=== PATIENT | male | born 1950 | race Caucasian/White ===

== ENCOUNTER 2016-11-01 00:06 | Emergency (ER) | payer OTHER ==
[~2016-11-01] VITALS: Ht 182.9 cm; Wt 93.2 kg
[~2016-11-01 00:06] MED LIST: ATRV10T PO; CLOP75TA3 PO; METO-272 PO
[2016-11-01 00:23] VITALS: BP 133/79; PULSE 75; RESP 16; O2SAT 95
[2016-11-01] MEDS ORDERED: 0.9% Sodium Chloride 1,000 ML IV ONE (00:58)
--- NOTE | 2016-11-01 00:58 | ED.REPORT ---
HPI-Abd Pain M 40 and Over Date of Service Nov 01, 2016 ED Provider: Ozzie Reese MD Patient is a 66 year old male with a history of coronary artery disease with prior cardiac stents, hypertension, and BPH who presents to the ED complaining of severe lower abdominal pain that began evening. The patient reports having this pain intermittently for the past 6 months, sometimes associated with chills. His pain is resolved on arrival to the ED. He reports having loose light stools, ashraf in color, but denies having actual diarrhea. He states that these episodes are frequent, often small and accompanied by increased urgency. He denies hematochezia, a history of Crohn's Disease, or inflammatory bowel disease. Patient has previously had an appendectomy but denies other abdominal surgeries. He reports increased pain in prostate when passing stool or urine, but denies having dysuria. Patient has a strong family history of prostate cancer so he find this concerning. He reports associated nausea but vomiting. Patient denies fever. Patient has previously been seen by his PCP for his abdominal complaints but he denies formal diagnosis. His symptoms are believed to possibly be IBS. He has not been see by GI. Nursing Notes Stated Complaint: IBS LIKE PAINS Chief Complaint: Male Abdominal Pain Nursing Notes Reviewed: Yes Allergies: Coded Allergies: Penicillins (Verified Allergy, Mild, itchy palms, 12/22/15) Sulfa (Sulfonamide Antibiotics) (Verified Allergy, Mild, itchy palms, ) Scheduled Atorvastatin (Lipitor) 10 Mg Tab 10 MG PO DAILY Clopidogrel Bisulfate (Plavix) 75 Mg Tablet 75 MG PO DAILY Metoprolol Succinate ER (Metoprolol Succinate ER) 50 Mg Tab.er.24h 25 MG PO DAILY Scheduled PRN Dicyclomine (Bentyl) 10 Mg Capsule 10 MG PO QID PRN PRN cramps General Time Seen by MD: 00:58 Chief Complaint Abdominal pain Hx Obtained From: Patient Arrived By: Ambulance Sudden in Onset?: No Onset Occurred: 1 - 4 hours ago Symptom Duration: Since onset Location: : Abdomen lower Quality: Painful Severity: Current: No pain currently Severity: Maximum: Severe Recent Healthcare: No recent hospitalization, Recent doctor visit Similar Sx Previous: Yes Past Medical History Past Medical History coronary artery disease with prior [place] in April 2014 BPH Reports: Hyperlipidemia, Hypertension Past Surgical History cardiac stents 3x April 2014 arthoscopic knee surgery Reports: Appendectomy Family History Prostate Cancer Smoking History Former Smoker Social History Alcohol Use: Denies alcohol use Drug Use: Denies drug use Other Social History: Good social support, , Local resident Ambulatory Status Independent Review of Systems Constitutional: Reports: Chills, Denies: Fever GI: Reports: Abdominal pain, Nausea, Denies: Diarrhea (but reports loose stool), Hematochezia, Vomiting Male: Denies Dysuria Complete sys rev & neg: except as marked. Physical Exam Initial Vital Signs Vital Signs (First) Date Time Temp Pulse Resp B/P Pulse Ox O2 Delivery O2 Flow Rate FiO2 11/01/16 00:23 38.1 75 16 133/79 95 Room Air Initial VS: Reviewed Head / Eyes: Atraumatic, Normocephalic, PERRL ENT: Conjunctiva normal, No scleral icterus Neck: Supple, Full range of motion Extremities: Vascular intact, Neuro intact Skin: Warm, Dry, No cyanosis Neurologic: Alert, Oriented, Nonfocal Psychiatric: Mood/affect normal, Behavior normal, Normal thought content General/Constitutional: Awake, Alert, No acute distress Respiratory / Chest: Breath sounds NL, Breath sounds = bilat, No respiratory distress, No rales, No rhonchi, No wheezing Cardiovascular: Heart rate NL, Regular rhythm, Heart sounds NL, No murmurs Abdomen: Soft, No guarding, No rebound Tenderness/Guarding/Rebound: Positive: Tender suprapubic Back: not examined Interpretation & Diagnostics Lab Results Interpretation Result Diagram: 11/01/16 0130 11/01/16 0130 Test 11/01/16 00:43 11/01/16 01:30 Urine Color Yellow (YELLOW) Urine Appearance Clear (CLEAR,HAZY) Urine pH 6.5 (5.0-8.0) Urine Specific [place] 1.010 (1.003-1.035) Urine Protein Negativemg/dL (NEG,TRACE) Urine Glucose (UA) Negativemg/dL (NEGATIVE) Urine Ketones Negativemg/dL (NEGATIVE) Urine Occult Blood Moderate (NEGATIVE) Urine Nitrite Negative (NEGATIVE) Urine Bilirubin Negative (NEGATIVE) Urine Urobilinogen Normalmg/dL (NORMAL) Urine Leukocyte Esterase Negative (NEGATIVE) Urine RBC 3-10/hpf (0-2) Urine WBC 0-5/hpf (0-5) Urine Epithelial Cells Occasional/hpf (NONE-MOD) Urine Crystals None seen (NONE SEEN) Urine Bacteria None/hpf (NONE-FEW) Urine Hyaline Casts None/lpf (NONE) Urine Granular Casts None seen (NONE SEEN) Urine Waxy Casts None seen (NONE SEEN) Urine Red Blood Cell Casts None seen (NONE SEEN) Urine White Blood Cell Casts None seen (NONE SEEN) Urine Mucus None seen (None Seen) Urine Trichomonas None seen (NONE SEEN) Urine Yeast None (NONE SEEN) Urinalysis Comment None Urine Culture Reflexed Not indicated White Blood Count 14.2th/mm3 (3.8-10.1) Red Blood Count 4.27mil/mm3 (4.40-5.80) Hemoglobin 13.2g/dL (13.8-17.2) Hematocrit 38.9% (41.0-50.0) Mean Corpuscular Volume 91.1fL (81-100) Mean Corpuscular Hemoglobin 30.9pg (27.0-35.0) Mean Corpuscular Hemoglobin Concent 33.9% (32.0-37.0) Red Cell Distribution Width 12.4% (12.3-15.4) Platelet Count 245bil/L (150-400) Neutrophils (%) (Auto) 73.8% (40-74) Lymphocytes (%) (Auto) 14.0% (14-46) Monocytes (%) (Auto) 8.8% (4-12) Eosinophils (%) (Auto) 2.8% (0-5) Basophils (%) (Auto) 0.2% (0-3) Sodium Level 135mEq/L (134-144) Potassium Level 4.1mEq/L (3.5-5.2) Chloride Level 98mEq/L (97-108) Carbon Dioxide Level 23mmol/L (18-29) Blood Urea Nitrogen 12mg/dL (8-27) Creatinine 0.77mg/dL (0.76-1.27) Estimat Glomerular Filtration Rate 107mL/min (>59) Glucose Level 119mg/dL (60-99) Calcium Level 9.0mg/dL (8.5-10.1) Magnesium Level 2.1mg/dL (1.6-2.6) Total Bilirubin 0.5mg/dL (0.0-1.2) Aspartate Amino Transf (AST/SGOT) 21U/L (0-50) Alanine Aminotransferase (ALT/SGPT) 14U/L (0-44) Alkaline Phosphatase 74U/L (25-160) Total Protein 7.1g/dL (6.4-8.4) Albumin 4.2g/dL (3.4-5.0) Lipase 62U/L (13-60) Hold Christiansen Top Tube Received (Received) Re-Eval/Medical Decision Med Decision/Clinical Course Crampy abdominal pain intermittent and pattern consistent with his prior irritable bowel. He resolved at this point without therapy. He has a mild elevation of his white count of 14,000 but no other findings of concern. No indication for CT scanning at this point. Plan follow up with PCP and return here if worsening symptoms. Trial of low-dose Bentyl with precautions about possible urinary retention. PSA is pending at his request. Discharged in stable condition. Source of Hx: Old records Time of Eval: 03:09 Patient Status: Condition resolved Re-Evaluation/Progress Note: Rechecked the patient to discuss the results of his labs. Patient feels resolved. Patient understands and agrees with the plan to be discharged home. Discharge instructions and follow-up with GI discussed. All questions were addressed. Return to the ED warnings given. Counseled Regarding: Diagnosis, Lab results, Need for follow-up, When/why to return to ED Discharge & Departure Primary Impression: Generalized abdominal pain Additional Impression: Irritable bowel syndrome (IBS) Disposition: Home Vital Signs - All Vital Signs Date Time Temp Pulse Resp B/P Pulse Ox O2 Delivery O2 Flow Rate FiO2 11/01/16 03:08 38.1 63 20 126/67 96 Room Air 11/01/16 02:50 63 20 126/67 96 Room Air 11/01/16 00:23 38.1 75 16 133/79 95 Room Air )( All Prior VS Reviewed: Yes Condition: Stable Patient Instructions: Acute Abdominal Pain (ED) Additional Instructions: You may try Bentyl for acute crampy episodes. It can give you more difficulty urinating, so beware. Follow-up with your doctor in the office. Return promptly if any immediate issues. I suggest follow up with gastroenterology for your chronic GI issues. You may contact Dr. Bryant for follow-up in the office. Referrals: [facility] Juice Bryant MD Scribe Attestation Portions of this note were transcribed by Gayle Fisher. I, Dr. Reese personally performed the history, physical exam and medical decision-making; I reviewed and confirmed the accuracy of the information in the transcribed note. Signed by: Henrique Weinstein, 11/01/2016 0311 copies to: [facility]; Juice Bryant MD, Christopher W MD Nov 01, 2016 00:58 Gayle Fisher Nov 01, 2016 01:27
[2016-11-01] MEDS ORDERED: Pantoprazole 4 mg/mL 10 mL Inj IVPUSH ONE (01:00)
[2016-11-01 01:15] LABS: APPEARANCE,URINE CLEAR (CLEAR,HAZY); COLOR,URINE YELLOW (YELLOW); OCCULT BLOOD,URINE MODERATE (NEGATIVE); PH,URINE 6.5 (5.0-8.0); UROBILINOGEN,URINE NORMAL (NORMAL)
[2016-11-01 01:42] LABS: BASOPHILS % (AUTO) 0.2 % (0-3); EOSINOPHILS % (AUTO) 2.8 % (0-5); MONOCYTES % (AUTO) 8.8 % (4-12); Mean Corpuscular Hemoglobin 30.9 pg (27.0-35.0); Mean Corpuscular Volume 91.1 fL (81-100); NEUTROPHILS % (AUTO) 73.8 % (40-74); Platelet Count 245 bil/L (150-400)
[2016-11-01 02:16] LABS: Magnesium 2.1 mg/dL (1.6-2.6)
[2016-11-01 02:50] VITALS: BP 126/67; PULSE 63; RESP 20; O2SAT 96
[2016-11-01] MEDS ORDERED: DICY10CA56 PO (03:05)
[2016-11-01 03:08] VITALS: BP 126/67; PULSE 63; RESP 20; O2SAT 96
== END 2016-11-01 03:12 | disposition home or self-care (01) ==
LOC: SED 00:06
DX: R10.84 Generalized abdominal pain (principal); K58.9 Irritable bowel syndrome, unspecified; I10 Essential (primary) hypertension; I25.10 Atherosclerotic heart disease of native coronary artery without angina pectoris; E78.5 Hyperlipidemia, unspecified; Z87.891 Personal history of nicotine dependence; Z88.0 Allergy status to penicillin; Z88.2 Allergy status to sulfonamides
CPT/HCPCS: 36415; 80053; 81000; 83690; 83735; 84153; 85025; 96361; 96374; 99284; J7030